=== PATIENT | female | born 1975 | race Caucasian/White ===

== ENCOUNTER 2021-06-29 07:19 | Emergency (ER) | payer OTHER ==
[~2021-06-29] VITALS: Ht 167.6 cm; Wt 127.0 kg
[2021-06-29 07:35] VITALS: BP 140/86
[2021-06-29] MEDS ORDERED: BACITRACIN ZINC/POLYMYXIN B OINT 30 GM TUBE TP STA (07:57)
[2021-06-29] MEDS ORDERED: cephALEXin 500 MG CAP PO ONE (08:00)
[2021-06-29] MEDS ORDERED: HYDROcodone/APAP 5/325 MG 1 TAB TAB PO ONE (08:00)
[2021-06-29] MEDS ORDERED: CEPH-588 PO (08:08)
[2021-06-29] MEDS ORDERED: HYDR-4490 PO (08:08)
[2021-06-29] MEDS ORDERED: NAPR-1704 PO (08:10)
[2021-06-29] MEDS ORDERED: BACITRACIN OINT 500 UNITS/GM PKT TP ONE (08:39)
--- NOTE | 2021-06-29 08:45 | NUR ---
wound care provided. bacitracin applied. patient is stable and laying in bed.
--- NOTE | 2021-06-29 09:07 | NUR ---
46 YR OLD FEMALE. C/O LOWER BACK PAIN. 04/01 FOR 2 DAYS. CELLULITIS ON BOTH LOWER EXTREMITIES. MEDHX: DENIES NKA
--- NOTE | 2021-06-29 10:08 | NUR ---
Patient discharged with v/s stable. Written and verbal after care instructions given and explained. Patient alert, oriented and verbalized understanding of instructions. Ambulatory with steady gait. All questions addressed prior to discharge. ID band removed. Patient advised to follow up with PMD. Rx of cephalexin and naproxen given. Patient educated on indication of medication including possible reaction and side effects. Opportunity to ask questions provided and answered.
[2021-06-29 10:13] VITALS: BP 140/86
== END 2021-06-29 10:08 | disposition home or self-care (01) ==
LOC: MED 07:19
DX: L03.116 Cellulitis of left lower limb (principal); I87.2 Venous insufficiency (chronic) (peripheral); Z79.1 Long term (current) use of non-steroidal anti-inflammatories (NSAID); Z79.2 Long term (current) use of antibiotics
CPT/HCPCS: 99284